=== PATIENT | male | born 1975 ===

== ENCOUNTER 2019-12-03 08:47 | Day surgery (SDC) | payer BC ==
[~2019-12-03] VITALS: Wt 97.2 kg
[~2019-12-03 08:47] MED LIST: HYDACE5 PO; OMEP20ER PO; TRAM50 PO; TRAZ100 PO
--- NOTE | 2019-12-03 12:38 | NUR ---
12/03/19 1238 OZZY GOINS PATIENT TOLERATING WATER, ATTEMPTED TO EAT PUDDING AND BECAME VERY NAUSEATED. 4MG IV ZOFRAN GIVEN FOR NAUSEA.
== END 2019-12-03 13:01 | disposition home or self-care (01) ==
LOC: ORSCSDS 08:47
PROVIDERS: Otolaryngology
PROC: 09BM0ZZ Excision of Nasal Septum, Open Approach (ICD-10-PCS; principal; 2019-12-03 10:00)
PROC: 09TL0ZZ Resection of Nasal Turbinate, Open Approach (ICD-10-PCS; principal; 2019-12-03 10:00)
DX: J34.2 Deviated nasal septum (principal); J34.3 Hypertrophy of nasal turbinates
CPT/HCPCS: J0330; J2250; J2405; J2704; J3010; J7120

== ENCOUNTER → 2023-01-02 | Outpatient (CLI) | payer BC ==
[2023-01-02 13:21] LABS: BASOPHILS ABSOLUTE AUTO 0.04 K/mm3 (0.00-0.23); BASOPHILS PERCENT AUTO 1 % (0-2); EOSINOPHILS ABSOLUTE AUTO 0.04 K/mm3 (0.00-0.68); EOSINOPHILS PERCENT AUTO 1 % (0-6); Hemoglobin 14.4 g/dL (13.5-17.5); IMMATURE GRAN ABSOLUTE AUTO 0.03 K/mm3 (0.00-0.10); IMMATURE GRAN PERCENT AUTO 0 % (0-1); LYMPHOCYTES ABSOLUTE AUTO 1.54 K/mm3 (0.84-5.20); LYMPHOCYTES PERCENT AUTO 19 % (21-46); MONOCYTES ABSOLUTE AUTO 0.51 K/mm3 (0.16-1.47); MONOCYTES PERCENT AUTO 6 % (4-13); Mean Corpuscular HGB 30.2 pg (26.0-34.0); Mean Corpuscular HGB Conc 34.3 g/dL (31.5-36.5); Mean Corpuscular Volume 88 fL (80-100); Mean Platelet Volume 10.2 fL (9.1-12.4); NEUTROPHILS ABSOLUTE AUTO 6.05 K/mm3 (1.96-9.15); NEUTROPHILS PERCENT AUTO 74 % (41-73); Platelet Count 294 K/mm3 (150-400); Red Blood Cell Count 4.77 M/mm3 (4.30-5.90); White Blood Cell Count 8.21 K/mm3 (4.00-11.30)
== END | disposition home or self-care (01) ==
LOC: LAB 11:55 → LAB SHORT 11:55
PROVIDERS: Hospitalist
DX: R04.2 Hemoptysis (principal)
CPT/HCPCS: 85025; 85379; 85651

== ENCOUNTER → 2023-07-20 | Outpatient (CLI) | payer BC ==
[2023-07-25 21:09] LABS: T-TRANSGLUTAMINASE (TTG) IGA <2 U/mL (0-3); T-TRANSGLUTAMINASE (TTG) IGG <2 U/mL (0-5)
== END | disposition home or self-care (01) ==
LOC: LAB SHORT 17:34 → LAB 17:34
PROVIDERS: Hospitalist
DX: Z12.5 Encounter for screening for malignant neoplasm of prostate (principal); R19.7 Diarrhea, unspecified
CPT/HCPCS: G0103

== ENCOUNTER → 2024-05-03 | Outpatient (CLI) | payer SELFPAY | END | disposition home or self-care (01) | LOC: LAB SHORT 07:39 → LAB 07:39 | DX: K21.9 Gastro-esophageal reflux disease without esophagitis (principal) | CPT/HCPCS: 87338 ==

== ENCOUNTER 2025-02-27 08:16 | Day surgery (SDC) | payer OTHER ==
[~2025-02-27] VITALS: Ht 182.9 cm; Wt 96.4 kg
[~2025-02-27 08:16] MED LIST changes: +Lactated Ringer's 1,000 ML IV ONE; +propofoL 50 ML IV ONE
[2025-02-27] MEDS ORDERED: Prinivil10 MG (08:42)
[2025-02-27] MEDS ORDERED: TRAZ100 (08:42)
[2025-02-27] MEDS ORDERED: Lactated Ringer's 1,000 ML IV ONE (09:51)
[2025-02-27 11:30] VITALS: BP 106/78
== END 2025-02-27 11:23 | disposition home or self-care (01) ==
LOC: ORSCSDS 08:16
PROVIDERS: Specialist
PROC: 0DBL8ZX Excision of Transverse Colon, Via Natural or Artificial Opening Endoscopic, Diagnostic (ICD-10-PCS; principal; 2025-02-27 09:45)
PROC: 0DB58ZX Excision of Esophagus, Via Natural or Artificial Opening Endoscopic, Diagnostic (ICD-10-PCS; principal; 2025-02-27 09:45)
PROC: 0DB68ZX Excision of Stomach, Via Natural or Artificial Opening Endoscopic, Diagnostic (ICD-10-PCS; principal; 2025-02-27 09:45)
DX: K21.9 Gastro-esophageal reflux disease without esophagitis (principal); Z12.11 Encounter for screening for malignant neoplasm of colon; I10 Essential (primary) hypertension; D12.3 Benign neoplasm of transverse colon; K57.30 Diverticulosis of large intestine without perforation or abscess without bleeding; K64.8 Other hemorrhoids; Z79.899 Other long term (current) drug therapy
CPT/HCPCS: 88305; 88342; J2704; J7120